=== PATIENT | female | born 1995 | race Caucasian/White ===

== ENCOUNTER 2017-02-05 11:13 | Emergency (ER) | payer BC ==
[2017-02-05 11:27] VITALS: RESP 16
[2017-02-05 12:05] LABS: % IMMATURE GRANULYOCYTES 0.2 % (0.0-1.1); ABSOLUTE IMMATURE GRANULOCYTES 0.01 10^3/uL (0.00-0.10); ADD DIFF? NO; ADD MORPH? NO; ADD SCAN? NO; ATYPICAL LYMPHOCYTE FLAG 10 (0-99); FRAGMENT RBC FLAG 0 (0-99); HEMATOCRIT 41.1 % (38.0-47.0); HEMOGLOBIN 14.6 g/dL (12.6-16.3); LEFT SHIFT FLG 0 (0-99); LIPEMIA HEMOLYSIS FLAG 90 (0-99); MEAN CELL HEMOGLOBIN CONCENTR. 35.5 g/dL (32.4-36.7); MEAN CELL VOLUME 87.3 fL (81.5-99.8); MEAN PLATELET VOLUME 10.3 fL (8.7-11.7); PLATELET CLUMPS FLAG 0 (0-99); PLATELET COUNT 282 10^3/uL (150-400); RED BLOOD CELL COUNT 4.71 10^6/uL (4.18-5.33); RED CELL DISTRIBUTION WIDTH 13.2 % (11.5-15.2)
--- NOTE | 2017-02-05 12:12 | CPEKG ---
Heart Rate: 62 RR Interval: 968 P-R Interval: 176 QRSD Interval: 82 QT Interval: 460 QTC Interval: 468 P [place]: 76 QRS [place]: 72 T Wave [place]: 52 EKG Severity - NORMAL ECG - EKG Impression: SINUS RHYTHM Electronically Signed By: Klever Schuler 05-Feb-2017 13:03:03
--- NOTE | 2017-02-05 12:25 | EDPHY ---
H & P Stated Complaint: Sensation SOB since Apl;heartburn since Dec;h/a,dizzy this wk Source: Patient Exam Limitations: No limitations - Personal History LMP (Females 10-55): 8-14 Days Ago Current Tetanus Diphtheria and Acellular Pertussis (TDAP): Yes - Medical/Surgical History Other PMH: dermatitis - Social History Smoking Status: Never smoked Time Seen by Provider: 02/05/17 12:21 HPI/ROS: HPI: This is a 21-year-old female who presents with Chief Complaint: Sensation SOB since Apl;heartburn since Dec;h/a,dizzy this wk Location: chest Quality: Dyspnea Duration: Since June Signs and Symptoms: no fever, no nausea, no vomiting, no hematemesis, no blood in stool, no abdominal bloating, no diarrhea, no back pain, no urinary symptoms , no vaginal bleeding/discharge, + indigestion, no chest pain, no palpitations, no lower extremity edema Timing: Occurs several times per week, lasting for several seconds and self resolved Severity: Moderate Context: Patient is generally healthy, lives locally, presents with a sensation of not being able to get enough oxygen since June. She reports that nothing makes better or worse. Episodes of dyspnea Occurs several times per week, lasting for several seconds and self resolve. She is able to hike long distances and perform cardio without any difficulty. No history of lung disease. Nonsmoker. She does travel quite a bit and was in [place] on a hiking trip for the . She denies any lower extremity edema. LMP was 2 weeks ago and has an IUD in place. Denies heavy menses/dysmenorrhea/ dyspareunia/vaginal bleeding/vaginal discharge. She denies snoring at night or apneic spells. She feels generally not well and is not sure what's going on. She has tried omeprazole for 1 month as well as Claritin x1 month without relief of symptoms. She denies any fever, cough, chest pains, palpitations, cardiac awareness. She is right-hand dominant. The feeling of not being able to get a deep breath or pressure cars on the left anterior chest; nonradiating in nature. Patient denies being under student increased stress or having anxiety. She has noted that there has been cement tolerance in her stomach to garlic and other citric foods over the last 1-2 months. Denies excessive NSAID use. She did take some Aleve yesterday without relief of the discomfort. Reports decreased appetite. Modifying Factors: See above Comment: ROS: see HPI Constitutional: No fever, no chills, no weight loss Eyes: No blurred vision Respiratory: + shortness of breath, no cough Cardiovascular: No chest pain, no palpitations Gastrointestinal: No nausea, no vomiting, no diarrhea, no hematemesis, no blood in stool Genitourinary: No dysuria, no blood in urine Extremities: No myalgias, no edema Neurologic: No weakness, no numbness Skin: No rashes, no petechiae Hematologic: No bruising, no bleeding MEDICAL/SURGICAL/SOCIAL HISTORY: Medical history: Generally healthy. Does not take any regular medications. Surgical history: Denies Social history: Lives locally. CONSTITUTIONAL: Extremely well-appearing young adult white female, awake and alert, no obvious distress HEENT: Atraumatic and normocephalic, PERRL, EOMI. Tympanic membranes clear. Oropharynx clear, no exudate and moist pink mucosa. Airway patent. No lymphadenopathy. No meningismus. Cardiovascular: Normal S1/S2, regular rate, regular rhythm, without murmur rub or gallop. PULMONARY/CHEST: Symmetrical and nontender. Clear to auscultation bilaterally. Good air movement. No accessory muscle usage. ABDOMEN: Soft, nondistended, nontender, no rebound, no guarding, no peritoneal signs, no masses or organomegaly. No CVAT. EXTREMITIES: 2/2 pulses, strength 5/5, no deformities, no clubbing, no cyanosis or edema. NEUROLOGICAL: no focal neuro deficits. GCS 15. SKIN: Warm and dry, no erythema. no rash. Good capillary refill. (Thang,Terra) Constitutional: Initial Vital Signs Temperature (C) 36.7 C 02/05/17 11:20 Heart Rate 74 02/05/17 11:20 Respiratory Rate 16 02/05/17 11:20 Blood Pressure 138/73 H 02/05/17 11:20 O2 Sat (%) 100 02/05/17 11:20 O2 Delivery Mode Room Air Allergies/Adverse Reactions: Penicillins Allergy (Unknown, Verified 02/05/17 11:27) Home Medications: Medication Instructions Recorded Polyethylene Glycol 3350 [Miralax 17 gm PO DAILY #30 pkt 02/05/17 17 gm (*)] Medical Decision Making - Diagnostics EKG Interpretation: EKG: Complete interpretation has been separately recorded in the [employer] archive. Summary impression: Sinus rhythm, rate 62 (Klever Schuler) 12 lead EKG: Indication: Dyspnea Rhythm: Normal sinus rhythm, rate 62 beats per minute [place]: Normal Intervals: Normal QRS: Normal ST segments: Normal INTERPRETATION: No acute ischemic changes The 12 lead EKG was interpreted by myself and with attending. (Sheryl Desir) Imaging Results: Imaging Impressions Abdomen X-Ray 02/05/17 12:00 Impression: 1. Clear lungs. No acute cardiopulmonary process. 2. No pneumoperitoneum or evidence of bowel obstruction. Abdomen Ultrasound 02/05/17 12:46 Impression: Normal. No cholelithiasis, biliary dilation, hydronephrosis or free fluid. Findings discussed with Emergency Department physician payroll and benefits assistant, MATIAS Rust on February 05, 2017 at 1337 hours. ED Course/Re-evaluation: Labs, urinalysis, EKG, acute abdomen series ordered EKG shows no acute ischemic changes, arrhythmia Acute abdominal series reviewed via PACs and shows no effusion, opacity, pneumothorax, obstruction. Moderate stool burden noted in left colon. IUD noted. 1245: Labs reviewed and showed mildly elevated T bili; due to indigestion and nausea will order right upper quadrant ultrasound No signs of pulmonary embolism, anemia, acute kidney injury, electrolyte imbalance, pancreatitis Called by Radiology and right upper quadrant ultrasound is completely unremarkable Advised MiraLax daily, push fluids, increase fiber This patient was seen under the supervision of my secondary supervising physician. I evaluated care for this patient independently. Patient's presentation, labs/imaging, treatment and plan of care were discussed with secondary supervising physician. (Sheryl Desir) Differential Diagnosis: Shortness of breath including but not limited to pulmonary infectious process, upper respiratory infection, asthma, pulmonary embolus, hiatal hernia, anemia and anxiety. (Sheryl Desir) - Data Points Laboratory Results: Laboratory Results 02/05/17 11:45 02/05/17 11:45 02/05/17 02/05/17 02/05/17 11:45 11:45 11:45 WBC RBC Hgb Hct MCV MCH MCHC RDW Plt Count MPV Neut % (Auto) Lymph % (Auto) [place] % (Auto) Eos % (Auto) Baso % (Auto) Nucleat RBC Rel Count Absolute Neuts (auto) Absolute Lymphs (auto) Absolute Monos (auto) Absolute Eos (auto) Absolute Basos (auto) Absolute Nucleated RBC Immature Gran % Immature Gran # D-Dimer < 0.27 ug/mLFEU ug/mLFEU (0.00-0.50) Sodium 141 mEq/L mEq/L (134-144) Potassium 4.0 mEq/L mEq/L (3.5-5.2) Chloride 104 mEq/L mEq/L (97-110) Carbon Dioxide 22 mEq/l mEq/l (22-31) Anion Gap 15 mEq/L mEq/L (8-16) BUN 11 mg/dL mg/dL (7-23) Creatinine 0.8 mg/dL mg/dL (0.6-1.0) Estimated GFR > 60 Glucose 80 mg/dL mg/dL (70-100) Calcium 9.9 mg/dL mg/dL (8.5-10.4) Total Bilirubin 1.7 mg/dL H mg/dL (0.1-1.4) Conjugated Bilirubin 0.2 mg/dL mg/dL (0.0-0.5) Unconjugated Bilirubin 1.5 mg/dL H mg/dL (0.0-1.1) AST 25 IU/L IU/L (14-46) ALT 33 IU/L IU/L (9-52) Alkaline Phosphatase 55 IU/L IU/L (38-126) Total Protein 8.1 g/dL g/dL (6.3-8.2) Albumin 5.0 g/dL g/dL (3.5-5.0) Lipase 86 IU/L IU/L (23-300) Beta HCG, Qual NEGATIVE 02/05/17 11:45 WBC 4.94 10^3/uL 10^3/uL (3.80-9.50) RBC 4.71 10^6/uL 10^6/uL (4.18-5.33) Hgb 14.6 g/dL g/dL (12.6-16.3) Hct 41.1 % % (38.0-47.0) MCV 87.3 fL fL (81.5-99.8) MCH 31.0 pg pg (27.9-34.1) MCHC 35.5 g/dL g/dL (32.4-36.7) RDW 13.2 % % (11.5-15.2) Plt Count 282 10^3/uL 10^3/uL (150-400) MPV 10.3 fL fL (8.7-11.7) Neut % (Auto) 47.2 % % (39.3-74.2) Lymph % (Auto) 41.5 % % (15.0-45.0) [place] % (Auto) 7.7 % % (4.5-13.0) Eos % (Auto) 2.0 % % (0.6-7.6) Baso % (Auto) 1.4 % % (0.3-1.7) Nucleat RBC Rel Count 0.0 % % (0.0-0.2) Absolute Neuts (auto) 2.33 10^3/uL 10^3/uL (1.70-6.50) Absolute Lymphs (auto) 2.05 10^3/uL 10^3/uL (1.00-3.00) Absolute Monos (auto) 0.38 10^3/uL 10^3/uL (0.30-0.80) Absolute Eos (auto) 0.10 10^3/uL 10^3/uL (0.03-0.40) Absolute Basos (auto) 0.07 10^3/uL 10^3/uL (0.02-0.10) Absolute Nucleated RBC 0.00 10^3/uL 10^3/uL (0-0.01) Immature Gran % 0.2 % % (0.0-1.1) Immature Gran # 0.01 10^3/uL 10^3/uL (0.00-0.10) D-Dimer Sodium Potassium Chloride Carbon Dioxide Anion Gap BUN Creatinine Estimated GFR Glucose Calcium Total Bilirubin Conjugated Bilirubin Unconjugated Bilirubin AST ALT Alkaline Phosphatase Total Protein Albumin Lipase Beta HCG, Qual Departure - Departure Disposition: Home, Routine, Self-Care Clinical Impression: Constipation by delayed colonic transit Condition: Good Instructions: Constipation (ED), High Fiber Diet (ED) Additional Instructions: Right upper quadrant ultrasound today shows no gallbladder disease. Please drink a minimum #8, 8 oz glasses of liquid daily. Increase fiber in diet and eat plenty of fruits and vegetables. Take MiraLax daily until having normal soft bowel movements and then use as needed. Please follow-up with your primary care provider in 1-2 weeks if symptoms persist. If you do not have a primary care provider you may follow up with Dr. Paz. Referrals: Anh Paz DO [Doctor of Osteopathy] - As per Instructions Prescriptions: Polyethylene Glycol 3350 [Miralax 17 gm (*)] 17 gm PO DAILY #30 pkt
[2017-02-05 12:30] LABS: ALANINE AMINOTRANSFERASE 33 IU/L (9-52); ALKALINE PHOSPHATASE 55 IU/L (38-126); ANION GAP 15 mEq/L (8-16); ASPARTATE AMINOTRANSFERASE 25 IU/L (14-46); BILIRUBIN,TOTAL 1.7 mg/dL (0.1-1.4); BILIRUBIN-CONJUGATED 0.2 mg/dL (0.0-0.5); BILIRUBIN-UNCONJUGATED 1.5 mg/dL (0.0-1.1); CALCIUM 9.9 mg/dL (8.5-10.4); CARBON DIOXIDE 22 mEq/l (22-31); CHLORIDE 104 mEq/L (97-110); CREATININE 0.8 mg/dL (0.6-1.0); GLOMERULAR FILTRATION RATE > 60; GLUCOSE 80 mg/dL (70-100); SODIUM 141 mEq/L (134-144); TOTAL PROTEIN 8.1 g/dL (6.3-8.2)
[2017-02-05 14:43] VITALS: BP 105/64; PULSE 63; TEMP 98.6; O2SAT 93
== END 2017-02-05 14:43 | disposition home or self-care (01) ==
DX: K59.01 Slow transit constipation (principal)